=== PATIENT | male | born 1995 | race Caucasian/White ===

== ENCOUNTER 2019-11-22 10:44 | Emergency (ER) | payer SELFPAY ==
[~2019-11-22] VITALS: Ht 170.2 cm; Wt 81.8 kg
[2019-11-22 10:55] VITALS: Ht 170.2 cm; Wt 81.8 kg
[2019-11-22 11:37] LABS: BASOPHILS 0.3 % (0-2); EOSINOPHILS 0.3 % (0-7); HEMATOCRIT 47.8 % (42.0-54.0); HEMOGLOBIN 16.2 g/dL (13.5-17.5); IMMATURE GRANULOCYTES 0.2 % (0-5); LYMPHOCYTES 29.7 % (15-50); MCH 29.7 pg (26.0-34.0); MCHC 33.9 g/dL (31.0-37.0); MCV 87.5 fL (80.0-100.0); MONOCYTES 11.8 % (2-11); NEUTROPHILS 57.7 % (40-80); PLATELET COUNT 172 10x3/uL (130-400); RBC 5.46 10x6/uL (4.20-6.10); RDW 13.5 % (11.5-14.5); WBC 6.6 10x3/uL (4.8-10.8)
[2019-11-22 11:44] LABS: CALC OSMOLALITY 273 mosm/kg (275-300); CALCIUM 8.5 mg/dL (8.5-10.1); CARBON DIOXIDE 26.9 mmol/L (21.0-32.0); CHLORIDE - SERUM 103 mmol/L (98-107); CREATININE - SERUM 1.1 mg/dL (0.6-1.3); GLUCOSE 101 mg/dL (74-106); POTASSIUM - SERUM 3.9 mmol/L (3.5-5.1); SODIUM 137 mmol/L (136-145); UREA NITROGEN 12 mg/dL (7-18); eGFR NON AFRICAN AMERICAN 86 mL/min (90-120)
[2019-11-22 11:45] LABS: INR 0.84 (0.85-1.17); PROTIME 11.5 SECONDS (11.6-15.0)
[2019-11-22 12:00] LABS: ALBUMIN 4.1 g/dL (3.4-5.0); ALKALINE PHOSPHATASE 63 U/L (30-120); ALT (SGPT) 80 U/L (10-68); BILIRUBIN - TOTAL 0.43 mg/dL (0.2-1.3); CKMB 0.4 U/L (0.0-3.6); CREATINE KINASE 134 UL (21-232); PROTEIN - SERUM 7.7 g/dL (6.4-8.2); TROPONIN-I < 0.017 ng/mL (0.000-0.060)
[2019-11-22 12:08] LABS: BILIRUBIN NEGATIVE (NEGATIVE); KETONE NEGATIVE (NEGATIVE); NITRITE NEGATIVE (NEGATIVE); UROBILINOGEN NORMAL (NORMAL)
[2019-11-22 12:30] VITALS: BP 129/87
== END 2019-11-22 12:30 | disposition home or self-care (01) ==
LOC: D.ER 10:44
PROVIDERS: Family Medicine
DX: U07.1 COVID-19 (principal); R05 Cough; R50.9 Fever, unspecified; R06.02 Shortness of breath